=== PATIENT | female | born 1945 | race Caucasian/White ===

== ENCOUNTER 2021-08-02 19:17 | Inpatient (IN) | payer MEDICARE, OTHER ==
[~2021-08-02] VITALS: Ht 154.9 cm; Wt 68.2 kg
[2021-08-02] MEDS ORDERED: acetaminophen 325mg tablet PO ONE (19:45)
[2021-08-02 20:37] LABS: BASOPHILS % (AUTO) 0.5 % (0-1); EOSINOPHILS % (AUTO) 0 % (0-6); HEMATOCRIT 43.1 % (35.0-45.0); HEMOGLOBIN 14.4 g/dl (12.0-16.0); LYMPHOCYTES # (AUTO) 0.6 X10'3 (1.1-4.8); LYMPHOCYTES % (AUTO) 8.4 % (21-51); MEAN CORPUSCULAR HEMOGLOBIN 29.6 PG (27.0-31.0); MEAN CORPUSCULAR HGB CONC 33.5 g/dL (33.0-36.5); MEAN CORPUSCULAR VOLUME 88.2 FL (78-98); MEAN PLATELET VOLUME 10.2 FL (7.4-10.4); MONOCYTES # (AUTO) 0.9 X10'3 (0-0.9); MONOCYTES % (AUTO) 13.8 % (2-12); NEUTROPHILS # (AUTO) 5.3 X10'3 (1.8-7.7); NEUTROPHILS % (AUTO) 77.3 % (42-75); PLATELET COUNT 237 X10'3 (140-440); RED BLOOD COUNT 4.88 X10'6 (4.20-5.60); RED CELL DISTRIBUTION WIDTH 13.1 % (11.5-14.5); WHITE BLOOD COUNT 6.9 X10'3 (4.5-11.0)
[2021-08-02 20:55] LABS: ALANINE AMINOTRANSFERASE 25 U/L (12-78); ALBUMIN 3.4 G/DL (3.4-5.0); ALBUMIN/GLOBULIN RATIO 0.8 (1.1-1.5); ALKALINE PHOSPHATASE 69 IU/L (46-116); ANION GAP 12 (8-16); ASPARTATE AMINO TRANSFERASE 33 U/L (10-37); BILIRUBIN,TOTAL 0.6 MG/DL (0.1-1.0); BLOOD UREA NITROGEN 25 MG/DL (7-18); CALCIUM 8.9 MG/DL (8.5-10.1); CHLORIDE 100 MMOL/L (99-107); GLUCOSE 122 MG/DL (70-104); POTASSIUM 3.6 MMOL/L (3.5-5.1); SODIUM 138 MMOL/L (135-145); TOTAL CARBON DIOXIDE 25.9 MMOL/L (24-32); TOTAL PROTEIN 7.9 G/DL (6.4-8.2); eGFR 54 ML/MIN
[2021-08-02] MEDS ORDERED: acetaminophen 325mg tablet PO PRN ×2 (22:15)
[2021-08-02] MEDS ORDERED: potassium Cl 40MEQ/1/2NS 520ml 520 ML IV PRN ×2 (22:15)
[2021-08-02] MEDS ORDERED: magnesium 4gm in 100ml NS 100 ML IV PRN (22:15)
[2021-08-02] MEDS ORDERED: magnesium 2GM in 50ml NS 50 ML IV PRN (22:15)
[2021-08-02] MEDS ORDERED: potassium Cl 20 mEq SR tablet PO PRN (22:15)
[2021-08-02] MEDS ORDERED: magnesium Cl slow-release 64mg tablet PO PRN (22:15)
[2021-08-02] MEDS ORDERED: CefTRIAXone 2gm/D5W 50ml BAG 50 ML IV SCH (22:55)
[2021-08-02] MEDS ORDERED: PANT40TA54 PO (23:00)
[2021-08-03 00:02] VITALS: BP 126/52
--- NOTE | 2021-08-03 00:03 | NUR ---
Received report from Lena CORRALES from ED. Patient came up to floor via wheelchair. Patient able to transfer to bed stand by assist. Bed placed in locked & low, position. Call light within reach.
[2021-08-03 02:00] VITALS: BP 96/50
--- NOTE | 2021-08-03 06:16 | NUR ---
Problems reprioritized. Patient report given, questions answered & plan of care reviewed with Arielle CORRALES.
[2021-08-03 06:28] VITALS: BP 113/50
[2021-08-03] MEDS: ondansetron/PF 4mg/2ml inj IV PRN (07:33)
[2021-08-03] MEDS: K and/or MAG REPLACEMENT MC SCH ×2 (08:00→20:00)
[2021-08-03] MEDS ORDERED: dexamethasone 4mg/ml inj IV SCH (08:00)
[2021-08-03] MEDS: pantoprazole 40mg Tablet.DR PO SCH (08:31)
[2021-08-03] MEDS: heparin, porcine 5000 units/ml vial SQ SCH ×2 (08:32→20:06)
[2021-08-03 08:41] LABS: LYMPHOCYTES # (AUTO) 0.9 X10'3 (1.1-4.8)
[2021-08-03 08:44] LABS: BASOPHILS % (AUTO) 0.1 % (0-1); EOSINOPHILS % (AUTO) 0.2 % (0-6); LYMPHOCYTES % (AUTO) 11.5 % (21-51); MEAN CORPUSCULAR HEMOGLOBIN 29.7 PG (27.0-31.0); MEAN CORPUSCULAR HGB CONC 34.1 g/dL (33.0-36.5); MEAN PLATELET VOLUME 10.4 FL (7.4-10.4); MONOCYTES % (AUTO) 12.9 % (2-12); NEUTROPHILS % (AUTO) 75.3 % (42-75); PLATELET COUNT 224 X10'3 (140-440); RED BLOOD COUNT 4.71 X10'6 (4.20-5.60); WHITE BLOOD COUNT 7.9 X10'3 (4.5-11.0)
[2021-08-03 09:06] LABS: D-DIMER 0.52 MG/L FEU (0-0.50)
[2021-08-03 09:20] LABS: ALANINE AMINOTRANSFERASE 20 U/L (12-78); ALBUMIN 3.1 G/DL (3.4-5.0); ALBUMIN/GLOBULIN RATIO 0.8 (1.1-1.5); ALKALINE PHOSPHATASE 63 IU/L (46-116); ANION GAP 7 (8-16); ASPARTATE AMINO TRANSFERASE 28 U/L (10-37); BILIRUBIN,TOTAL 0.5 MG/DL (0.1-1.0); BLOOD UREA NITROGEN 21 MG/DL (7-18); BUN/CREATININE RATIO 25.6 (6.6-38.0); C-REACTIVE PROTEIN 11.07 MG/DL (0.0-0.5); CALCIUM 8.8 MG/DL (8.5-10.1); CHLORIDE 102 MMOL/L (99-107); CREATININE 0.82 MG/DL (0.40-0.90); GLUCOSE 92 MG/DL (70-104); MAGNESIUM 2.9 MG/DL (1.5-2.4); POTASSIUM 3.4 MMOL/L (3.5-5.1); SODIUM 137 MMOL/L (135-145); TOTAL CARBON DIOXIDE 27.6 MMOL/L (24-32); TOTAL PROTEIN 7.1 G/DL (6.4-8.2); eGFR 68 ML/MIN
--- NOTE | 2021-08-03 09:28 | NUR ---
Malnutrition Consult" 10lb loss past month": Pt admit DX increased weakness r/t COVID-19 10 days [employer]. Pt has no significant weakness, no edema, skin intact, no scaled wt this admit or wt hx, and appears age-appropriate per MD note. PO regular meals pending this admit. Likely some wt loss and decreased intake [employer] however pt lacks minimum malnutrition criteria at this time. Will monitor for nutrition intervention needs this admit. Addendum: 08/03/21 at [address] Amended: Links added.
[2021-08-03] MEDS: potassium Cl 20 mEq SR tablet PO PRN ×3 (11:36→23:49)
[2021-08-03] MEDS: dexamethasone 4mg tablet PO SCH (13:20)
[2021-08-03 14:00] VITALS: BP 114/50
[2021-08-03 18:00] VITALS: BP 153/85
--- NOTE | 2021-08-03 18:13 | NUR ---
Patient in room [facility]. I have received report from Arielle CORRALES and had the opportunity to ask questions and assume patient care.
--- NOTE | 2021-08-03 18:17 | NUR ---
Problems reprioritized. Patient report given, questions answered & plan of care reviewed with BISI CORRALES.
[2021-08-03] MEDS ORDERED: CefTRIAXone 2gm/D5W 50ml BAG 50 ML IV SCH (20:00)
[2021-08-03] MEDS: lactobacillus rhamnosus 10,000 MMU CELLS/CAPSULE PO SCH (20:05)
[2021-08-03 22:00] VITALS: BP 125/62
[2021-08-04 02:00] VITALS: BP 102/57
[2021-08-04] MEDS: ondansetron/PF 4mg/2ml inj IV PRN (03:04)
[2021-08-04 06:00] VITALS: BP 140/57
--- NOTE | 2021-08-04 06:16 | NUR ---
Problems reprioritized. Patient report given, questions answered & plan of care reviewed with Ana CORRALES.
--- NOTE | 2021-08-04 06:30 | NUR ---
Patient in room [facility] 4015B. I have received report from ANTONI MATHEWS and had the opportunity to ask questions and assume patient care.
[2021-08-04] MEDS: pantoprazole 40mg Tablet.DR PO SCH (07:10)
[2021-08-04] MEDS: dexamethasone 4mg tablet PO SCH (07:10)
[2021-08-04] MEDS: lactobacillus rhamnosus 10,000 MMU CELLS/CAPSULE PO SCH (07:10)
[2021-08-04] MEDS: heparin, porcine 5000 units/ml vial SQ SCH (07:11)
[2021-08-04] MEDS: K and/or MAG REPLACEMENT MC SCH (08:00)
[2021-08-04 09:05] LABS: D-DIMER 0.95 MG/L FEU (0-0.50)
[2021-08-04 09:08] LABS: ALANINE AMINOTRANSFERASE 21 U/L (12-78); ALBUMIN/GLOBULIN RATIO 0.7 (1.1-1.5); ALKALINE PHOSPHATASE 64 IU/L (46-116); ANION GAP 9 (8-16); ASPARTATE AMINO TRANSFERASE 26 U/L (10-37); BASOPHILS % (AUTO) 0.4 % (0-1); BILIRUBIN,TOTAL 0.4 MG/DL (0.1-1.0); BLOOD UREA NITROGEN 17 MG/DL (7-18); BUN/CREATININE RATIO 23.9 (6.6-38.0); C-REACTIVE PROTEIN 8.18 MG/DL (0.0-0.5); CHLORIDE 106 MMOL/L (99-107); CREATININE 0.71 MG/DL (0.40-0.90); EOSINOPHILS % (AUTO) 0 % (0-6); GLUCOSE 128 MG/DL (70-104); HEMATOCRIT 42.4 % (35.0-45.0); HEMOGLOBIN 14.4 g/dl (12.0-16.0); LYMPHOCYTES # (AUTO) 0.8 X10'3 (1.1-4.8); LYMPHOCYTES % (AUTO) 11.3 % (21-51); MEAN CORPUSCULAR HGB CONC 33.9 g/dL (33.0-36.5); MEAN CORPUSCULAR VOLUME 88.6 FL (78-98); MEAN PLATELET VOLUME 10.3 FL (7.4-10.4); MONOCYTES # (AUTO) 1.1 X10'3 (0-0.9); MONOCYTES % (AUTO) 16.6 % (2-12); NEUTROPHILS # (AUTO) 4.8 X10'3 (1.8-7.7); NEUTROPHILS % (AUTO) 71.7 % (42-75); PLATELET COUNT 267 X10'3 (140-440); POTASSIUM 4.6 MMOL/L (3.5-5.1); RED BLOOD COUNT 4.79 X10'6 (4.20-5.60); RED CELL DISTRIBUTION WIDTH 13.2 % (11.5-14.5); SODIUM 142 MMOL/L (135-145); TOTAL CARBON DIOXIDE 26.9 MMOL/L (24-32); TOTAL PROTEIN 7.2 G/DL (6.4-8.2); WHITE BLOOD COUNT 6.7 X10'3 (4.5-11.0); eGFR 80 ML/MIN
[2021-08-04 10:07] LABS: PLATELET ESTIMATE NORMAL; TOTAL CELLS COUNTED 100
[2021-08-04] MEDS ORDERED: LEVO500T89 PO (10:31)
[2021-08-04] MEDS ORDERED: DEC4T PO (10:31)
[2021-08-04] MEDS ORDERED: levoFLOXACIN 500mg tablet PO SCH (11:00)
--- NOTE | 2021-08-04 11:49 | NUR ---
O2 Sat at rest on room air:_92__% If below 89%: Recovery O2 Sat at rest on ___LPM:___%:___% via (mask/nasal cannula, etc..) No further documentation is necessary. If O2 Sat did not drop below 89% on room air,ambulate patient on room air. O2 Sat while ambulating on room air:_86__% Recovery O2 Sat while ambulating on __3_LPM:_91_% No further documentation is necessary. If patient does not drop below 89% while ambulating, he/she does not qualify for home O2.
[2021-08-04 14:00] VITALS: BP 150/60
--- NOTE | 2021-08-04 16:07 | NUR ---
D/C INSTRUCTIONS GIVEN, QUESTIONS ANSWERED. BELONGINGS GATHERED WITH PT AND SENT WITH PT. IV D/C'D, CANNULA INTACT, NO COMPLICATIONS. D/C'D PT IN STABLE CONDITION TO THE [facility] IN PRIVATE VEHICLE ACCOMPANIED BY FRIEND. PT LEFT FLOOR AT 1605.
== END 2021-08-04 16:05 | disposition home or self-care (01) | DRG 177 ==
LOC: ER 19:18 → ED HOLD 22:15 → ORTHO 4S 23:40
PROVIDERS: ADMIT Internal Medicine; ATTEND Internal Medicine
DX: U07.1 COVID-19 (principal); J12.82 Pneumonia due to coronavirus disease 2019; E87.6 Hypokalemia; J40 Bronchitis, not specified as acute or chronic; K44.9 Diaphragmatic hernia without obstruction or gangrene
CPT/HCPCS: 36415; 71045; 80053; 83605; 83735; 85007; 85025; 85379; 86140; 87040; 87081; 87635; 97161; 97530; 99285; C9803; G0378; J0696; J1100; J1644; J2405

== ENCOUNTER 2021-11-17 13:55 | Emergency (ER) | payer MEDICARE, OTHER ==
[~2021-11-17] VITALS: Ht 154.9 cm; Wt 71.0 kg
[~2021-11-17 13:55] MED LIST: DEC4T PO; LEVO500T90 PO; PANT40TA54 PO
[2021-11-17 14:37] LABS: BASOPHILS # (AUTO) 0.1 X10'3 (0-0.2); EOSINOPHILS % (AUTO) 0.2 % (0-6); HEMOGLOBIN 14.7 g/dl (12.0-16.0); MONOCYTES # (AUTO) 1.1 X10'3 (0-0.9)
[2021-11-17 14:37] LABS: CLARITY,URINE CLOUDY (Clear); COLOR,URINE YELLOW (Yellow); GLUCOSE, URINE NEGATIVE (Neg); KETONES,URINE TRACE mg/dl (Neg); LEUKOCYTE ESTERASE ,URINE SMALL (Neg); NITRITES, URINE POSITIVE (Neg); OCCULT BLOOD,URINE SMALL (Neg); PROTEIN,URINE 30 mg/dl (Neg); UROBILINOGEN,URINE 0.2 E.U/dL (0.2-1.0)
[2021-11-17 14:38] LABS: UA COLLECTION TYPE CLN CATCH MIDSTREAM
[2021-11-17 14:39] LABS: BASOPHILS % (AUTO) 0.9 % (0-1); HEMATOCRIT 44.3 % (35.0-45.0); LYMPHOCYTES # (AUTO) 7.8 X10'3 (1.1-4.8); LYMPHOCYTES % (AUTO) 55.8 % (21-51); MEAN CORPUSCULAR HEMOGLOBIN 27.6 PG (27.0-31.0); MEAN CORPUSCULAR HGB CONC 33.1 g/dL (33.0-36.5); MEAN CORPUSCULAR VOLUME 83.5 FL (78-98); MEAN PLATELET VOLUME 9.4 FL (7.4-10.4); NEUTROPHILS # (AUTO) 4.9 X10'3 (1.8-7.7); NEUTROPHILS % (AUTO) 35.1 % (42-75); PLATELET COUNT 183 X10'3 (140-440); RED BLOOD COUNT 5.31 X10'6 (4.20-5.60); RED CELL DISTRIBUTION WIDTH 16.1 % (11.5-14.5)
[2021-11-17 14:45] LABS: BACTERIA,URINE 4+ /HPF (Neg); MUCUS STRANDS NONE SEEN /LPF (Neg); SQUAMOUS EPITHELIAL CELL,UR FEW /LPF (FEW); WBC CLUMPS,URINE MODERATE /HPF (NEGATIVE); WBC,URINE 50-100 /HPF (0-4)
--- NOTE | 2021-11-17 14:45 | NUR ---
Pt c/o lower back pain and painful urination.
[2021-11-17 14:53] LABS: ALANINE AMINOTRANSFERASE 83 U/L (12-78); ALBUMIN 2.9 G/DL (3.4-5.0); ALBUMIN/GLOBULIN RATIO 0.9 (1.1-1.5); ALKALINE PHOSPHATASE 91 IU/L (46-116); ANION GAP 7 (8-16); ASPARTATE AMINO TRANSFERASE 100 U/L (10-37); BILIRUBIN,TOTAL 0.7 MG/DL (0.1-1.0); BLOOD UREA NITROGEN 16 MG/DL (7-18); CALCIUM 8.8 MG/DL (8.5-10.1); CHLORIDE 101 MMOL/L (99-107); GLUCOSE 143 MG/DL (70-104); POTASSIUM 3.4 MMOL/L (3.5-5.1); SODIUM 137 MMOL/L (135-145); TOTAL PROTEIN 6.2 G/DL (6.4-8.2); eGFR 54 ML/MIN
[2021-11-17] MEDS ORDERED: NITR100C PO (15:07)
[2021-11-17] MEDS ORDERED: ONDA8TAB13 PO (15:07)
[2021-11-17] MEDS ORDERED: PHEN-786 PO (15:12)
[2021-11-17] MEDS ORDERED: traMADol 50MG tablet PO ONE (15:15)
[2021-11-17 15:23] LABS: ANISOCYTOSIS 1+; PLATELET ESTIMATE NORMAL; SMUDGE CELLS 1+; TOTAL CELLS COUNTED 100
--- NOTE | 2021-11-17 15:25 | NUR ---
Pt given and understands d/c instructions. Ambulatory with a steady gait.
== END 2021-11-17 15:25 | disposition home or self-care (01) ==
LOC: ER 13:56
DX: N39.0 Urinary tract infection, site not specified (principal); R74.8 Abnormal levels of other serum enzymes; E11.9 Type 2 diabetes mellitus without complications; Z79.2 Long term (current) use of antibiotics; Z79.899 Other long term (current) drug therapy
CPT/HCPCS: 36415; 80053; 81001; 84145; 85007; 85025; 99283